=== PATIENT | male | born 1965 | race Two or more races ===

== ENCOUNTER → 2019-05-05 09:15 | Outpatient (CLI) | payer OTHER | END | disposition home or self-care (01) | LOC: LAB 09:15 | DX: R10.84 Generalized abdominal pain (principal); Z00.00 Encounter for general adult medical examination without abnormal findings; E78.49 Other hyperlipidemia; E55.9 Vitamin D deficiency, unspecified; R42 Dizziness and giddiness; N42.39 Other dysplasia of prostate ==

== ENCOUNTER 2019-05-12 08:12 | Outpatient (CLI) | payer OTHER | END 2019-05-12 08:32 | disposition home or self-care (01) | LOC: MAMO-SONO 08:12 | DX: R10.84 Generalized abdominal pain (principal) ==

== ENCOUNTER 2019-10-18 18:45 | Emergency (ER) | payer OTHER ==
[~2019-10-18] VITALS: Ht 177.8 cm; Wt 120.2 kg
[~2019-10-18 18:45] MED LIST: CORGARD20 MG PO; LASIX20 MG PO
== END 2019-10-19 00:04 | disposition home or self-care (01) ==
LOC: ER 18:45
DX: R18.8 Other ascites (principal); R50.9 Fever, unspecified

== ENCOUNTER → 2019-10-21 | Emergency (ER) | payer OTHER ==
[~2019-10-21] VITALS: Ht 177.8 cm; Wt 120.2 kg
== END | disposition expired ==
LOC: ER 18:45 → CPU-OBS 18:46 → ER 18:46
DX: K62.5 Hemorrhage of anus and rectum (principal); K92.0 Hematemesis; I46.9 Cardiac arrest, cause unspecified; R06.02 Shortness of breath
CPT/HCPCS: G0378; G0379; 31500; 36600; 43753; 82805; 92950; 93005